=== PATIENT | female | born 1950 | race Two or more races ===

== ENCOUNTER 2025-01-16 09:38 | Inpatient (IN) | payer OTHER ==
[~2025-01-16] VITALS: Ht 154.9 cm; Wt 56.7 kg
[2025-01-16] MEDS ORDERED: LEVOTHYROXINE25 MCG PO (10:19)
[2025-01-16] MEDS ORDERED: ATORVASTATIN CA40 MG PO (10:20)
[2025-01-16] MEDS ORDERED: TOPROL XL25 M1 PO (10:20)
[2025-01-16] MEDS ORDERED: LOSARTAN POTASS25 MG PO (10:20)
[2025-01-16] MEDS ORDERED: PANTOPRAZO40 MG/50 M IV (10:21)
[2025-01-16] MEDS ORDERED: PANTOPRAZOLE SODIUM 40 MG in 0.9 % SODIUM CHLORIDE 8 ML IV PUSH STA (10:36)
[2025-01-16] MEDS ORDERED: PANTOPRAZOLE SODIUM 40 MG/VIAL VIAL IV SCH (10:45)
[2025-01-16] MEDS ORDERED: 0.9 % SODIUM CHLORIDE 1,000 ML IV SCH ×2 (10:45→19:15)
[2025-01-16] MEDS ORDERED: PANTOPRAZOLE SODIUM 80 MG in 0.9 % SODIUM CHLORIDE 100 ML IV SCH (11:00)
[2025-01-16 11:10] LABS: BASO % 0.6 % (0.1-1.2); EOS # 0.04 (0.04-0.54); EOS % 0.6 % (0.7-7.0); HEMATOCRIT 41.7 % (34.1-44.9); HEMOGLOBIN 13.2 g/dL (11.2-15.7); LYMPH # 1.03 (1.18-3.74); LYMPH % 16.2 % (19.3-53.1); MEAN CORPUSCULAR HEMOGLOBIN 28.4 pg (25.6-32.2); MONO # 0.63 (0.24-0.82); MONO % 9.9 % (4.7-12.5); NEUT % 72.5 % (34.0-71.1); PLATELET COUNT 261 K/uL (163-369); RED BLOOD COUNT 4.65 M/uL (3.93-5.22); RED CELL DISTRIBUTION WIDTH 14.5 % (11.6-14.4)
[2025-01-16 11:39] LABS: ALBUMIN 3.4 gm/dL (3.4-5.0); BILIRUBIN TOTAL 0.47 mg/dL (0.3-1.2); CALCIUM 9.1 mg/dL (8.5-10.1); CREATININE SERUM 0.9 mg/dL (0.55-1.02); GFR 61.55; GLOBULINA 3.8 G/DL (2.4-3.5); INR 1.03; PARTIAL THROMBOPLASTIN TIME 23.9 SECONDS (22.0-34.0); POTASSIUM 4.39 mEq/L (3.5-5.1); PROTHROMBIN TIME 11.2 SECONDS (9.0-11.5); TOTAL PROTEIN 7.2 gm/dL (6.4-8.2)
[2025-01-16] MEDS ORDERED: OCTREOTIDE ACETATE 1,250 MCG in 0.9 % SODIUM CHLORIDE 250 ML IV SCH (14:30)
[2025-01-16] MEDS ORDERED: CLONAZEPAM 0.5 MG TABLET PO SCH (21:00)
[2025-01-17 01:02] LABS: PH,URINE 6.5 (5.0-8.0); URINE APPEARANCE Clear; URINE BILIRRUBIN Negative (NEGATIVE); URINE BLOOD Negative; URINE COLOR Yellow; URINE KETONE Negative (NEGATIVE); URINE LEUKOCYTE Moderate; URINE NITRATE Negative; URINE PROTEIN Negative (NEGATIVE); URINE UROBILINOGEN 0.2 E.U./dl
[2025-01-17 01:07] LABS: URINE BACTERIA 214.1 uL (0.0-1933); URINE EPITHELIAL CELLS 6.6 uL (0.0-38.8); URINE RBC 8.2 uL (0.0-20.8); URINE WBC 70.8 uL (0.0-23.2)
[2025-01-17 01:10] LABS: URINE CAST 0.14 uL (0.0-1.40); URINE GLUCOSE 100 MG/DL (NEGATIVE)
[2025-01-17 01:39] VITALS: BP 129/81
[2025-01-17 03:45] VITALS: BP 142/80
[2025-01-17] MEDS ORDERED: LEVOTHYROXINE SODIUM 25 MCG TABLET PO SCH (06:00)
[2025-01-17 06:17] LABS: BASO % 0.6 % (0.1-1.2); EOS # 0.11 (0.04-0.54); EOS % 1.6 % (0.7-7.0); HEMATOCRIT 36.4 % (34.1-44.9); HEMOGLOBIN 11.5 g/dL (11.2-15.7); LYMPH # 1.33 (1.18-3.74); LYMPH % 19.2 % (19.3-53.1); MONO # 0.74 (0.24-0.82); MONO % 10.7 % (4.7-12.5); NEUT # 4.66 (1.56-6.13); NEUT % 67.5 % (34.0-71.1); PLATELET COUNT 255 K/uL (163-369); RED CELL DISTRIBUTION WIDTH 14.3 % (11.6-14.4)
[2025-01-17] MEDS ORDERED: ATORVASTATIN CALCIUM 40 MG TABLET PO SCH (09:00)
[2025-01-17] MEDS ORDERED: LOSARTAN POTASSIUM 25 MG TABLET PO SCH (09:00)
[2025-01-17 09:11] VITALS: BP 165/70; O2SAT 99
[2025-01-17 12:53] LABS: ob POSITIVE (NEGATIVE)
[2025-01-17] MEDS ORDERED: DIPHENHYDRAMINE HCL 50 MG/ML VIAL 1ML IV ONE (15:15)
[2025-01-17] MEDS ORDERED: fentaNYL CITRATE 50 MCG/ML AMPUL IV PUSH ONE (15:15)
[2025-01-17] MEDS ORDERED: MIDAZOLAM HCL 2 MG/2 ML VIAL IV ONE (15:15)
[2025-01-17 17:00] VITALS: BP 133/77; O2SAT 100
== END 2025-01-17 19:44 | disposition home or self-care (01) | DRG 394 ==
LOC: ER 09:58 → MEDJ 20:27 → SEC-K 20:27 → MEDJ 01-17 01:16
PROVIDERS: General Practice; ADMIT Internal Medicine; ATTEND Internal Medicine
PROC: BW21ZZZ Computerized Tomography (CT Scan) of Abdomen and Pelvis (ICD-10-PCS; 2025-01-16)
PROC: 0DB78ZX Excision of Stomach, Pylorus, Via Natural or Artificial Opening Endoscopic, Diagnostic (ICD-10-PCS; principal; 2025-01-17)
DX: K31.7 Polyp of stomach and duodenum (principal); K92.1 Melena